=== PATIENT | male | born 1950 | race Caucasian/White ===

== ENCOUNTER → 2017-01-05 | Outpatient (CLI) | payer OTHER ==
[~2017-01-05] MED LIST: ANT25 PO; ARTOS OD; ATENOLOL25 MG PO; B COMPLEX1 TA2 PO; B COMPLEX1 TAB PO; CLONIDINE HCL0.2 MG PO; COZ50 PO; COZAAR50 MG PO; ECO81 PO; GLU5 PO; GLU850 PO; INSR; LANTUS SOLOS100 U/M1; LIDOCAINE HCL100 ML PO; LOP50 PO; METFORMIN HCL500 MG PO; MEV20 PO; NEU100 PO; [UNRECOGNIZED DRUG - CODE]
== END | disposition home or self-care (01) ==
LOC: US 09:02
PROC: BT43ZZZ Ultrasonography of Bilateral Kidneys (ICD-10-PCS; principal; 2017-01-05)
DX: I10 Essential (primary) hypertension (principal)